=== PATIENT | male | born 1950 | race Caucasian/White ===

== ENCOUNTER 2020-07-12 12:18 | Inpatient (IN) | payer BC, MEDICARE ==
[2020-07-12] VITALS (14 sets, daily range): BP systolic 103–161; BP diastolic 54–117
[~2020-07-12] VITALS: Ht 190.5 cm; Wt 133.5 kg
[~2020-07-12 12:18] MED LIST: BENA20TA2 PO; CELE-193 PO; DILT180C90 PO; HYDR-4383 PO; HYDR12.5 PO; METO-384 PO; ROSU10TA2 PO; ZOLP10TA5 PO
[2020-07-12] MEDS ORDERED: fentaNYL/PF 50MCG/1 ML 2ML syringe IV ONE (12:30)
[2020-07-12] MEDS ORDERED: diltiazem 5mg/ml 5ml inj. IV ONE (12:30)
[2020-07-12] MEDS ORDERED: iohexol 350MG/ML 100ml bottle IV ONE (12:38)
[2020-07-12 12:50] LABS: BASOPHILS % (AUTO) 0.3 % (0-1); EOSINOPHILS % (AUTO) 0 % (0-6); HEMATOCRIT 38.4 % (42.0-52.0); HEMOGLOBIN 12.6 g/dl (14.0-17.9); LYMPHOCYTES # (AUTO) 0.4 X10'3 (1.1-4.8); LYMPHOCYTES % (AUTO) 4.4 % (21-51); MEAN CORPUSCULAR HEMOGLOBIN 31.3 PG (27.0-31.0); MEAN CORPUSCULAR HGB CONC 32.9 g/dL (33.0-36.5); MEAN CORPUSCULAR VOLUME 95.2 FL (78-98); MEAN PLATELET VOLUME 8.8 FL (7.4-10.4); MONOCYTES # (AUTO) 0.5 X10'3 (0-0.9); MONOCYTES % (AUTO) 6.1 % (2-12); NEUTROPHILS # (AUTO) 7.3 X10'3 (1.8-7.7); NEUTROPHILS % (AUTO) 89.2 % (42-75); PLATELET COUNT 249 X10'3 (140-440); RED BLOOD COUNT 4.03 X10'6 (4.70-6.10); RED CELL DISTRIBUTION WIDTH 15.6 % (11.5-14.5); WHITE BLOOD COUNT 8.1 X10'3 (4.5-11.0)
[2020-07-12 12:55] LABS: ABG BASE EXCESS -4.5 mmol/L (-2.0-2.0); ABG HCO3 20.5 mmol/L (22.0-26.0); ABG OXYGEN SATURATION 99.3 % (94-97); ABG PCO2 (T) 37.5 mmHg (35.0-48.0); ALLEN'S TEST POSITIVE; FCOHb 0.1 % (0.0-3.9); FLOW 15 L/min; FMetHb 0.2 % (0.0-1.5); TOTAL HEMOGLOBIN 12.5 G/dl (14.0-18.0)
[2020-07-12] MEDS ORDERED: morphine 10mg/ml inj. IV ONE (12:55)
--- NOTE | 2020-07-12 13:15 | NUR ---
DR GRAY INFORMED OF BLUE FEET BILARALLY, NO PD OR TB PULSES PALPATED. VERY COLD FEET TO ANKLE
[2020-07-12 13:17] LABS: PARTIAL THROMBOPLASTIN TIME 23 SECONDS (22-32)
[2020-07-12 13:18] LABS: ALANINE AMINOTRANSFERASE 34 U/L (12-78); ALBUMIN 3.3 G/DL (3.4-5.0); ALBUMIN/GLOBULIN RATIO 1.1 (1.1-1.5); ALKALINE PHOSPHATASE 115 IU/L (46-116); ANION GAP 6 (8-16); ASPARTATE AMINO TRANSFERASE 25 U/L (10-37); BILIRUBIN,TOTAL 0.8 MG/DL (0.1-1.0); BLOOD UREA NITROGEN 20 MG/DL (7-18); BUN/CREATININE RATIO 16.4 (5.4-32.0); CALCIUM 8.1 MG/DL (8.5-10.1); CHLORIDE 104 MMOL/L (99-107); CREATININE 1.22 MG/DL (0.60-1.10); GLUCOSE 133 MG/DL (70-104); POTASSIUM 3.4 MMOL/L (3.5-5.1); SODIUM 138 MMOL/L (135-145); TOTAL CARBON DIOXIDE 28.1 MMOL/L (24-32); TOTAL PROTEIN 6.3 G/DL (6.4-8.2); eGFR 59 ML/MIN
[2020-07-12 13:27] LABS: C-REACTIVE PROTEIN 0.47 MG/DL (0.0-0.5); LACTATE DEHYDROGENASE 164 U/L (85-227); LIPASE 266 U/L (73-393); MAGNESIUM 1.5 MG/DL (1.5-2.4)
[2020-07-12 13:29] LABS: FERRITIN 38 NG/ML (26-388)
[2020-07-12] MEDS ORDERED: HYDR12.55 PO (13:30)
[2020-07-12] MEDS ORDERED: METO-384 PO (13:30)
[2020-07-12] MEDS ORDERED: ROSU10TA28 PO (13:30)
[2020-07-12] MEDS ORDERED: BENA40TA72 PO (13:30)
[2020-07-12] MEDS ORDERED: CELE400C10 PO (13:30)
[2020-07-12] MEDS ORDERED: ZOLP10TA PO (13:30)
[2020-07-12] MEDS ORDERED: HYDR-3964 PO (13:30)
[2020-07-12] MEDS ORDERED: DILT180C49 PO (13:30)
[2020-07-12] MEDS ORDERED: ASPI-611 PO (13:32)
[2020-07-12] MEDS ORDERED: CHOL200012 PO (13:32)
[2020-07-12] MEDS ORDERED: MULT-1085 PO (13:32)
--- NOTE | 2020-07-12 13:32 | NUR ---
BACK FROM CT SCAN BP LEFT ARM DURING SCAN 95/73
--- NOTE | 2020-07-12 13:38 | NUR ---
DR GRAY WAS PRESENT IN CT SCAN DR GRAY AWARE OF CURRENT VITALS, VO FOR KEL
--- NOTE | 2020-07-12 13:42 | NUR ---
VERBAL ORDER FOR 2 LITERS SALINE ELEVATED LACTATE
[2020-07-12] MEDS ORDERED: normal saline 1000ml 1,000 ML IV ONE ×2 (13:45)
[2020-07-12 14:19] LABS: CLARITY,URINE CLEAR (Clear); COLOR,URINE YELLOW (Yellow); GLUCOSE, URINE NEGATIVE (Neg); KETONES,URINE NEGATIVE (Neg); LEUKOCYTE ESTERASE ,URINE NEGATIVE (Neg); NITRITES, URINE NEGATIVE (Neg); OCCULT BLOOD,URINE NEGATIVE (Neg); PH,URINE 6.5 (4.8-8.0); PROTEIN,URINE 30 mg/dl (Neg)
[2020-07-12 14:21] LABS: UA COLLECTION TYPE FOLEY CATH
[2020-07-12 14:25] LABS: RBC,URINE NONE SEEN /HPF (0-2)
[2020-07-12 14:26] LABS: BACTERIA,URINE NONE SEEN /HPF (Neg); SQUAMOUS EPITHELIAL CELL,UR FEW /LPF (FEW); WBC CLUMPS,URINE FEW /HPF (NEGATIVE)
[2020-07-12 14:28] LABS: CELLULAR CAST 0-4 /LPF (NEGATIVE); MUCUS STRANDS FEW /LPF (Neg)
[2020-07-12] MEDS ORDERED: metroNIDAZOLE-Flagyl 500mg/NS 100 ML IV STA (14:28)
[2020-07-12 14:29] LABS: HYALINE CASTS 0-3 /LPF (NEGATIVE)
[2020-07-12] MEDS ORDERED: CefTRIAXone 2gm/D5W 50ml BAG 50 ML IV ONE (14:30)
[2020-07-12] MEDS ORDERED: ringers solution, lacted 1,000 ML IV ONE (14:55)
[2020-07-12] MEDS ORDERED: MIDAZolam inj 50 MG in normal saline 50ml IV soln 40 ML IV SCH (15:05)
[2020-07-12] MEDS ORDERED: ondansetron/PF 4mg/2ml inj IV PRN ×2 (15:05→17:20)
[2020-07-12] MEDS ORDERED: ringers solution, lacted 1,000 ML IV SCH (15:05)
[2020-07-12] MEDS ORDERED: diltiazem-NS 100mg/100ml 125 ML IV SCH (15:05)
[2020-07-12] MEDS ORDERED: FENTANYL-0.9 % NACL/PF 100 ML IV PRN ×2 (15:05→17:20)
[2020-07-12] MEDS ORDERED: MIDAZolam 5mg/ml 2ml vial ONE (15:11)
[2020-07-12] MEDS ORDERED: fentaNYL /PF 50mcg/ml 5ml ampule ONE (15:12)
[2020-07-12] MEDS ORDERED: rocuronium 10mg/ml inj IV ONE ×2 (15:12→16:22)
[2020-07-12] MEDS ORDERED: propofol inj 20 ML IV ONE (15:12)
[2020-07-12] MEDS ORDERED: LIDOcaine 2% (20mg/ml) 5ml vial ONE (15:12)
[2020-07-12] MEDS ORDERED: midazolam 100mg in NS 100ml 100 ML IV PRN (15:20)
[2020-07-12] MEDS ORDERED: sevoflurane 250ml liquid IH ONE (15:40)
[2020-07-12] MEDS ORDERED: phenylephrine 10mg/ml inj. ONE (15:40)
[2020-07-12] MEDS ORDERED: NORepinephrine 8 MG in NS 250 ML BAG (32 mcg/ml) IV ONE (15:40)
[2020-07-12] MEDS ORDERED: metoprolol tartrate 1mg/ml inj IV ONE (16:50)
[2020-07-12] MEDS ORDERED: diltiazem-NS 100mg/100ml 100 ML IV SCH (17:14)
[2020-07-12] MEDS ORDERED: diltiazem-D5W 125mg/125ml 125 ML IV SCH (17:16)
[2020-07-12] MEDS ORDERED: pantoprazole 40 MG vial IV ONE ×3 (17:20→18:00)
[2020-07-12] MEDS ORDERED: ipratropium/albuterol 3ml nebule NEB PRN (17:20)
[2020-07-12] MEDS ORDERED: fentaNYL/PF 50MCG/1 ML 2ML syringe IV PRN (17:20)
[2020-07-12] MEDS ORDERED: potassium Cl 20 mEq SR tablet PO PRN ×2 (17:20)
[2020-07-12] MEDS ORDERED: amiodarone 150mg/dext, iso-os 100 ML IV ONE (17:20)
[2020-07-12] MEDS ORDERED: midazolam 2 mg/2 ml injection IV ONE (17:20)
[2020-07-12] MEDS ORDERED: acetaminophen 325mg tablet PO PRN ×2 (17:20)
[2020-07-12] MEDS ORDERED: LIDOcaine 2% 10ml TOPICAL JELLY (Urojet) TP ONE (17:20)
[2020-07-12] MEDS ORDERED: potassium CL 10mEq/100ml bag 100 ML IV PRN ×2 (17:20)
--- NOTE | 2020-07-12 17:26 | NUR ---
Received from OR via ICU bed to room 2010, accompanied by Anesthesiologist Silvia and report given by Anesthesiolgist. Pt placed on ventilator and monitor. Art line and CVP zeroed, MD relays art line positional. Cuff pressure also taken. VS stable. Vent settings to A/C VC and pt not responding to questions at this time, appears comfortable. Drips hooked up per MD orders please see eMAR. OG tube placed to section, mild drainage appeared in suction cannister. Island dressing to midline and MEIR to upper right quadrant serosang drainage. Thompson cath draining alfred urine. All lines labeled. Dr Tuttle at bedside who states not to hang cardizem as ordered but to order amiodarone instead. Will monitor closely.
[2020-07-12] MEDS: midazolam 100mg in NS 100ml 100 ML IV PRN (17:44)
[2020-07-12] MEDS: FENTANYL-0.9 % NACL/PF 100 ML IV PRN (17:45)
[2020-07-12] MEDS: amiodarone/D5 360MG/200ML BAG 200 ML IV SCH ×2 (18:03→23:34)
[2020-07-12] MEDS: NORepinephrine 8mg/ 250ml NS 250 ML IV PRN (18:05)
--- NOTE | 2020-07-12 18:36 | NUR ---
Report given to Leeanne Gaitan RN at bedside at room 2009. All VS stable, lines labeled, BLL locked, alarms audible, RT is at bedside attempting to draw ABG. Chest x-ray already taken. Second bag of amiodarone hanging. Relayed to RN all events during recovery, huang cath and MEIR emptied and recorded. All questions answered. Bedside RN taking over care of patient.
--- NOTE | 2020-07-12 18:40 | NUR ---
Patient in room CICU 2009. I have received report from AFSHAN OSW and had the opportunity to ask questions and assume patient care.
--- NOTE | 2020-07-12 19:02 | NUR ---
I have reviewed and agree with all medications administered and interventions performed by [facility] Student Aneta Calle.
[2020-07-12 19:05] LABS: ABG BASE EXCESS -2.6 mmol/L (-2.0-2.0); ABG HCO3 22.4 mmol/L (22.0-26.0); ABG OXYGEN SATURATION 98.4 % (94-97); ABG PCO2 (T) 40.2 mmHg (35.0-48.0); ABG PO2 (T) 135.2 mmHg (75.0-100.0); FCOHb 0.3 % (0.0-3.9); FMetHb 0.2 % (0.0-1.5); FO2Hb 97.9 % (94-97); PATIENT TEMPERATURE 37.3; PEEP 5 cm H2O; RESPIRATORY RATE 20 b/min; TIDAL VOLUME 450 mL; TOTAL HEMOGLOBIN 12.6 G/dl (14.0-18.0)
[2020-07-12] MEDS: ipratropium/albuterol 3ml nebule NEB SCH ×2 (19:37→23:04)
[2020-07-12] MEDS: pantoprazole 40MG/NS 100ML BAG 100 ML IV SCH (21:36)
[2020-07-12] MEDS: normal saline 1000ml 1,000 ML IV SCH (21:38)
[2020-07-12] MEDS: docusate sod 100mg capsule PO SCH (21:39)
[2020-07-13] VITALS (24 sets, daily range): BP systolic 91–126; BP diastolic 56–81
[2020-07-13] MEDS: NORepinephrine 8mg/ 250ml NS 250 ML IV PRN ×2 (00:30→12:02)
[2020-07-13] MEDS: metroNIDAZOLE-Flagyl 500mg/NS 100 ML IV SCH ×4 (00:33→23:55)
[2020-07-13] MEDS: pantoprazole 40MG/NS 100ML BAG 100 ML IV SCH ×5 (01:56→20:46)
[2020-07-13] MEDS: ipratropium/albuterol 3ml nebule NEB SCH ×6 (02:43→23:04)
[2020-07-13 03:17] LABS: BASOPHILS % (AUTO) 0 % (0-1); EOSINOPHILS % (AUTO) 0 % (0-6); HEMATOCRIT 33.4 % (42.0-52.0); HEMOGLOBIN 10.9 g/dl (14.0-17.9); LYMPHOCYTES # (AUTO) 0.4 X10'3 (1.1-4.8); MEAN CORPUSCULAR HEMOGLOBIN 31.5 PG (27.0-31.0); MEAN CORPUSCULAR HGB CONC 32.8 g/dL (33.0-36.5); MEAN CORPUSCULAR VOLUME 96.1 FL (78-98); MEAN PLATELET VOLUME 8.7 FL (7.4-10.4); MONOCYTES # (AUTO) 0.8 X10'3 (0-0.9); PLATELET COUNT 216 X10'3 (140-440); RED BLOOD COUNT 3.47 X10'6 (4.70-6.10); RED CELL DISTRIBUTION WIDTH 16.1 % (11.5-14.5); WHITE BLOOD COUNT 9.2 X10'3 (4.5-11.0)
[2020-07-13] MEDS: midazolam 100mg in NS 100ml 100 ML IV PRN ×2 (03:26→17:19)
[2020-07-13] MEDS: FENTANYL-0.9 % NACL/PF 100 ML IV PRN ×2 (03:27→15:51)
[2020-07-13 03:29] LABS: ALANINE AMINOTRANSFERASE 27 U/L (12-78); ALBUMIN 2.5 G/DL (3.4-5.0); ALBUMIN/GLOBULIN RATIO 0.9 (1.1-1.5); ALKALINE PHOSPHATASE 87 IU/L (46-116); ANION GAP 7 (8-16); ASPARTATE AMINO TRANSFERASE 17 U/L (10-37); BLOOD UREA NITROGEN 19 MG/DL (7-18); BUN/CREATININE RATIO 21.3 (5.4-32.0); CALCIUM 7.9 MG/DL (8.5-10.1); CHLORIDE 106 MMOL/L (99-107); CREATININE 0.89 MG/DL (0.60-1.10); GLUCOSE 139 MG/DL (70-104); PHOSPHORUS 3.7 MG/DL (2.3-4.5); POTASSIUM 4.1 MMOL/L (3.5-5.1); SODIUM 140 MMOL/L (135-145); TOTAL CARBON DIOXIDE 26.9 MMOL/L (24-32); TOTAL PROTEIN 5.4 G/DL (6.4-8.2); TROPONIN I < 0.04 NG/ML (0.0-0.05); eGFR 85 ML/MIN
[2020-07-13 03:45] LABS: ABG BASE EXCESS -1.2 mmol/L (-2.0-2.0); ABG OXYGEN SATURATION 97.4 % (94-97); ABG PCO2 (T) 41.7 mmHg (35.0-48.0); ABG PO2 (T) 106.6 mmHg (75.0-100.0); FCOHb 0.3 % (0.0-3.9); FMetHb 0.1 % (0.0-1.5); PATIENT TEMPERATURE 36.9; PEEP 5 cm H2O; RESPIRATORY RATE 20 b/min; TIDAL VOLUME 450 mL; TOTAL HEMOGLOBIN 11.8 G/dl (14.0-18.0)
[2020-07-13] MEDS: normal saline 1000ml 1,000 ML IV SCH ×4 (05:20→17:20)
[2020-07-13] MEDS: amiodarone/D5 360MG/200ML BAG 200 ML IV SCH ×4 (06:00→23:55)
--- NOTE | 2020-07-13 06:39 | NUR ---
Problems reprioritized. Patient report given, questions answered & plan of care reviewed with EFFIE SOW.
[2020-07-13] MEDS ORDERED: fluconazole-Diflucan 200mg/NS 100 ML IV SCH (08:00)
[2020-07-13] MEDS: docusate sod 100mg capsule PO SCH ×2 (08:00→20:00)
--- NOTE | 2020-07-13 08:51 | NUR ---
DR Marcum at bedside. Orders to try patient on SPONT and wean to extubate. Patient tolerated SPONT for only a few min before HR went up to 160. Patient placed back on a rate and MD and respiratory notified.
[2020-07-13] MEDS: levoFLOXACIN-Levaquin 750MG/D5 150 ML IV SCH (09:50)
[2020-07-13] MEDS ORDERED: midazolam 2 mg/2 ml injection IV PRN (12:35)
[2020-07-13] MEDS: dexmedetomidin/NS 400mcg/100ml 100 ML IV SCH ×3 (12:57→20:47)
--- NOTE | 2020-07-13 14:05 | NUR ---
Initial: Pt admit with perforated gastric ulcer. Pt remains intubated s/p repair of perforated gastric ulcer. TF recommendations below for if prolonged intubation and to receive nutrition support. Will continue to follow closely. Recommendations: 1) IF TF, continuous Vital High Protein with goal rate of 95 mL/hr to begin at 20 mL/hr and advance by 20 mL Q8H as tolerated to goal rate 2) IF TF, additional 65 mL water flush Q4H 3) IF TF, prealbumin q Thursday/, daily weights 4) Bowel care per rx Addendum: 07/13/20 at 1406 by Katie Ordoñez RD Amended: Links added.
--- NOTE | 2020-07-13 18:30 | NUR ---
I have reviewed and agree with all medications administered and interventions performed by [facility] Student Aneta Calle.
[2020-07-13] MEDS: mineral oil/petrolatum ophthal oint EACHEYE SCH (20:00)
[2020-07-14] VITALS (23 sets, daily range): BP systolic 88–131; BP diastolic 58–95
[2020-07-14] MEDS: mineral oil/petrolatum ophthal oint EACHEYE SCH ×4 (02:14→20:00)
[2020-07-14] MEDS: pantoprazole 40MG/NS 100ML BAG 100 ML IV SCH ×5 (02:14→19:41)
[2020-07-14] MEDS: ipratropium/albuterol 3ml nebule NEB SCH ×6 (02:41→22:58)
[2020-07-14 03:25] LABS: ABG BASE EXCESS -0.7 mmol/L (-2.0-2.0); ABG HCO3 24.5 mmol/L (22.0-26.0); ABG OXYGEN SATURATION 92.9 % (94-97); ABG PCO2 (T) 43.3 mmHg (35.0-48.0); ABG PO2 (T) 67.3 mmHg (75.0-100.0); FCOHb 0.3 % (0.0-3.9); FMetHb 0.1 % (0.0-1.5); FO2Hb 92.5 % (94-97); PATIENT TEMPERATURE 37.2; PEEP 5 cm H2O; RESPIRATORY RATE 20 b/min; TIDAL VOLUME 450 mL
[2020-07-14 03:31] LABS: BASOPHILS % (AUTO) 0.2 % (0-1); EOSINOPHILS % (AUTO) 0.3 % (0-6); HEMATOCRIT 29.8 % (42.0-52.0); HEMOGLOBIN 9.7 g/dl (14.0-17.9); LYMPHOCYTES # (AUTO) 0.5 X10'3 (1.1-4.8); LYMPHOCYTES % (AUTO) 7.5 % (21-51); MEAN CORPUSCULAR HEMOGLOBIN 31.8 PG (27.0-31.0); MEAN CORPUSCULAR HGB CONC 32.7 g/dL (33.0-36.5); MEAN CORPUSCULAR VOLUME 97.2 FL (78-98); MEAN PLATELET VOLUME 8.6 FL (7.4-10.4); MONOCYTES # (AUTO) 0.5 X10'3 (0-0.9); MONOCYTES % (AUTO) 6.8 % (2-12); NEUTROPHILS % (AUTO) 85.2 % (42-75); PLATELET COUNT 176 X10'3 (140-440); RED BLOOD COUNT 3.06 X10'6 (4.70-6.10); RED CELL DISTRIBUTION WIDTH 16.4 % (11.5-14.5); WHITE BLOOD COUNT 7.1 X10'3 (4.5-11.0)
[2020-07-14 03:43] LABS: ALANINE AMINOTRANSFERASE 24 U/L (12-78); ALBUMIN 2.1 G/DL (3.4-5.0); ALBUMIN/GLOBULIN RATIO 0.7 (1.1-1.5); ALKALINE PHOSPHATASE 83 IU/L (46-116); ANION GAP 4 (8-16); ASPARTATE AMINO TRANSFERASE 15 U/L (10-37); BILIRUBIN,TOTAL 0.8 MG/DL (0.1-1.0); BLOOD UREA NITROGEN 18 MG/DL (7-18); BUN/CREATININE RATIO 21.2 (5.4-32.0); CALCIUM 8.1 MG/DL (8.5-10.1); CHLORIDE 109 MMOL/L (99-107); CREATININE 0.85 MG/DL (0.60-1.10); GLUCOSE 119 MG/DL (70-104); MAGNESIUM 2.1 MG/DL (1.5-2.4); PHOSPHORUS 2.4 MG/DL (2.3-4.5); POTASSIUM 4.4 MMOL/L (3.5-5.1); SODIUM 141 MMOL/L (135-145); TOTAL CARBON DIOXIDE 27.8 MMOL/L (24-32); eGFR 89 ML/MIN
[2020-07-14] MEDS: dexmedetomidin/NS 400mcg/100ml 100 ML IV SCH ×3 (05:40→23:04)
[2020-07-14] MEDS: amiodarone/D5 360MG/200ML BAG 200 ML IV SCH ×2 (05:44→12:22)
[2020-07-14] MEDS: docusate sod 100mg capsule PO SCH (08:00)
[2020-07-14] MEDS: metroNIDAZOLE-Flagyl 500mg/NS 100 ML IV SCH ×2 (08:03→15:46)
[2020-07-14] MEDS: FENTANYL-0.9 % NACL/PF 100 ML IV PRN ×2 (08:57→23:02)
[2020-07-14] MEDS: normal saline 1000ml 1,000 ML IV SCH ×2 (09:16→15:44)
[2020-07-14] MEDS: levoFLOXACIN-Levaquin 750MG/D5 150 ML IV SCH (10:48)
--- NOTE | 2020-07-14 18:15 | NUR ---
Patient in room CICU 2009. I have received report and had the opportunity to ask questions and assume patient care.
--- NOTE | 2020-07-14 22:03 | NUR ---
Pt's phoned nurses station. Spouse updated.
[2020-07-15] VITALS (29 sets, daily range): BP systolic 91–147; BP diastolic 62–99
[2020-07-15] MEDS: metroNIDAZOLE-Flagyl 500mg/NS 100 ML IV SCH ×3 (00:23→15:22)
[2020-07-15] MEDS: amiodarone/D5 360MG/200ML BAG 200 ML IV SCH ×4 (00:23→12:04)
[2020-07-15] MEDS: pantoprazole 40MG/NS 100ML BAG 100 ML IV SCH ×6 (00:26→20:45)
[2020-07-15] MEDS: normal saline 1000ml 1,000 ML IV SCH ×2 (02:36→15:20)
[2020-07-15] MEDS: mineral oil/petrolatum ophthal oint EACHEYE SCH ×4 (02:44→20:00)
[2020-07-15] MEDS: ipratropium/albuterol 3ml nebule NEB SCH ×6 (02:59→23:06)
[2020-07-15 03:51] LABS: ABG BASE EXCESS -1.4 mmol/L (-2.0-2.0); ABG HCO3 23.1 mmol/L (22.0-26.0); ABG OXYGEN SATURATION 94.5 % (94-97); ABG PCO2 (T) 38.6 mmHg (35.0-48.0); ABG PO2 (T) 77.2 mmHg (75.0-100.0); FCOHb 0.3 % (0.0-3.9); FMetHb 0.3 % (0.0-1.5); FO2Hb 93.9 % (94-97); PATIENT TEMPERATURE 37.5; PEEP 5 cm H2O; TOTAL HEMOGLOBIN 10.2 G/dl (14.0-18.0)
[2020-07-15 03:57] LABS: BASOPHILS % (AUTO) 0.3 % (0-1); EOSINOPHILS % (AUTO) 0.4 % (0-6); HEMATOCRIT 27.8 % (42.0-52.0); HEMOGLOBIN 9.2 g/dl (14.0-17.9); LYMPHOCYTES # (AUTO) 0.4 X10'3 (1.1-4.8); MEAN CORPUSCULAR HEMOGLOBIN 31.7 PG (27.0-31.0); MEAN CORPUSCULAR HGB CONC 33.1 g/dL (33.0-36.5); MEAN CORPUSCULAR VOLUME 95.9 FL (78-98); MEAN PLATELET VOLUME 8.4 FL (7.4-10.4); MONOCYTES # (AUTO) 0.5 X10'3 (0-0.9); MONOCYTES % (AUTO) 6.6 % (2-12); NEUTROPHILS # (AUTO) 6.2 X10'3 (1.8-7.7); NEUTROPHILS % (AUTO) 86.7 % (42-75); PLATELET COUNT 169 X10'3 (140-440); RED CELL DISTRIBUTION WIDTH 16.1 % (11.5-14.5); WHITE BLOOD COUNT 7.2 X10'3 (4.5-11.0)
[2020-07-15 04:08] LABS: ALANINE AMINOTRANSFERASE 18 U/L (12-78); ALBUMIN 1.9 G/DL (3.4-5.0); ALBUMIN/GLOBULIN RATIO 0.6 (1.1-1.5); ALKALINE PHOSPHATASE 83 IU/L (46-116); ANION GAP 6 (8-16); ASPARTATE AMINO TRANSFERASE 11 U/L (10-37); BILIRUBIN,TOTAL 0.7 MG/DL (0.1-1.0); BLOOD UREA NITROGEN 18 MG/DL (7-18); CHLORIDE 109 MMOL/L (99-107); CREATININE 0.82 MG/DL (0.60-1.10); GLUCOSE 114 MG/DL (70-104); MAGNESIUM 1.9 MG/DL (1.5-2.4); PHOSPHORUS 2.7 MG/DL (2.3-4.5); POTASSIUM 4.2 MMOL/L (3.5-5.1); SODIUM 141 MMOL/L (135-145); TOTAL CARBON DIOXIDE 26.3 MMOL/L (24-32); TOTAL PROTEIN 4.9 G/DL (6.4-8.2); eGFR > 90 ML/MIN
--- NOTE | 2020-07-15 06:31 | NUR ---
Problems reprioritized. Patient report given, questions answered & plan of care reviewed.
[2020-07-15] MEDS: docusate sodium 100mg/10ml UD cup PO SCH ×2 (08:01→21:14)
[2020-07-15] MEDS: levoFLOXACIN-Levaquin 750MG/D5 150 ML IV SCH (09:00)
[2020-07-15] MEDS: FENTANYL-0.9 % NACL/PF 100 ML IV PRN ×2 (10:07→21:13)
--- NOTE | 2020-07-15 10:52 | NUR ---
TF Consult: TF to start at 10ml/hr today per surgeon. RD d/w surgeon regarding Vital AF instead of Jevity for EN and surgeon agreeable. Pt s/p perforated pyloric channel ulcer repair DX sepsis and peritonitis on admit. Will hold additional free water at this time until EN approved to advance per surgeon.Will monitor for EN tolerance and advancement as medically indicated. Recommendations: 1) Continuous TF at 10ml/hr per surgeon request using Vital High Protein. To provide 240ml volume, 240kcals, 202ml free water, and 21g protein. 2) IF TF to advance; recommend Vital High Protein with goal rate of 95 mL/hr and advance by 20 mL Q8H as tolerated to goal rate 3) Once TF advances, additional 100mL water flush Q4H 4) prealbumin q Thursday/, daily weights 5) Bowel care per rx Addendum: 07/15/20 at [address] Amended: Links added.
[2020-07-15] MEDS: dexmedetomidin/NS 400mcg/100ml 100 ML IV SCH ×2 (12:03→15:18)
--- NOTE | 2020-07-15 18:19 | NUR ---
Problems reprioritized. Patient report given, questions answered & plan of care reviewed with Parul.
--- NOTE | 2020-07-15 18:20 | NUR ---
Patient in room CICU 2009. I have received report from and had the opportunity to ask questions and assume patient care.
[2020-07-15] MEDS: lactobacillus rhamnosus 10,000 MMU CELLS/CAPSULE PO SCH (21:13)
[2020-07-16] VITALS (25 sets, daily range): BP systolic 108–217; BP diastolic 71–133
[2020-07-16] MEDS: metroNIDAZOLE-Flagyl 500mg/NS 100 ML IV SCH ×3 (00:28→15:27)
[2020-07-16] MEDS: normal saline 1000ml 1,000 ML IV SCH (00:43)
[2020-07-16] MEDS: pantoprazole 40MG/NS 100ML BAG 100 ML IV SCH ×3 (00:44→09:28)
[2020-07-16] MEDS: mineral oil/petrolatum ophthal oint EACHEYE SCH ×4 (01:49→20:58)
[2020-07-16] MEDS: ipratropium/albuterol 3ml nebule NEB SCH ×5 (02:50→20:04)
[2020-07-16 03:55] LABS: ABG HCO3 21.5 mmol/L (22.0-26.0); ABG OXYGEN SATURATION 93.2 % (94-97); ABG PCO2 (T) 36.4 mmHg (35.0-48.0); ABG PO2 (T) 67.7 mmHg (75.0-100.0); FCOHb 0.3 % (0.0-3.9); FMetHb 0.3 % (0.0-1.5); FO2Hb 92.6 % (94-97); PEEP 5 cm H2O; TOTAL HEMOGLOBIN 10.6 G/dl (14.0-18.0)
[2020-07-16 04:03] LABS: ALANINE AMINOTRANSFERASE 17 U/L (12-78); ALBUMIN 1.9 G/DL (3.4-5.0); ALBUMIN/GLOBULIN RATIO 0.6 (1.1-1.5); ALKALINE PHOSPHATASE 91 IU/L (46-116); ANION GAP 9 (8-16); ASPARTATE AMINO TRANSFERASE 14 U/L (10-37); BILIRUBIN,TOTAL 0.8 MG/DL (0.1-1.0); BLOOD UREA NITROGEN 16 MG/DL (7-18); BUN/CREATININE RATIO 24.2 (5.4-32.0); CALCIUM 7.9 MG/DL (8.5-10.1); CHLORIDE 111 MMOL/L (99-107); CREATININE 0.66 MG/DL (0.60-1.10); GLUCOSE 105 MG/DL (70-104); MAGNESIUM 1.8 MG/DL (1.5-2.4); POTASSIUM 3.7 MMOL/L (3.5-5.1); SODIUM 146 MMOL/L (135-145); TOTAL CARBON DIOXIDE 26.2 MMOL/L (24-32); TOTAL PROTEIN 4.9 G/DL (6.4-8.2); eGFR > 90 ML/MIN
[2020-07-16 04:18] LABS: BASOPHILS % (AUTO) 0.7 % (0-1); EOSINOPHILS # (AUTO) 0.2 X10'3 (0-0.9); EOSINOPHILS % (AUTO) 2.6 % (0-6); HEMATOCRIT 28.5 % (42.0-52.0); HEMOGLOBIN 9.3 g/dl (14.0-17.9); LYMPHOCYTES # (AUTO) 0.5 X10'3 (1.1-4.8); LYMPHOCYTES % (AUTO) 7.8 % (21-51); MEAN CORPUSCULAR HEMOGLOBIN 31.3 PG (27.0-31.0); MEAN CORPUSCULAR HGB CONC 32.6 g/dL (33.0-36.5); MEAN CORPUSCULAR VOLUME 96.2 FL (78-98); MEAN PLATELET VOLUME 8.8 FL (7.4-10.4); MONOCYTES # (AUTO) 0.6 X10'3 (0-0.9); MONOCYTES % (AUTO) 9.9 % (2-12); NEUTROPHILS # (AUTO) 4.7 X10'3 (1.8-7.7); PLATELET COUNT 184 X10'3 (140-440); RED BLOOD COUNT 2.96 X10'6 (4.70-6.10); RED CELL DISTRIBUTION WIDTH 16.5 % (11.5-14.5); WHITE BLOOD COUNT 5.9 X10'3 (4.5-11.0)
[2020-07-16] MEDS: dexmedetomidin/NS 400mcg/100ml 100 ML IV SCH ×3 (05:16→22:43)
--- NOTE | 2020-07-16 06:35 | NUR ---
Problems reprioritized. Patient report given, questions answered & plan of care reviewed .
[2020-07-16] MEDS: levoFLOXACIN-Levaquin 750MG/D5 150 ML IV SCH (07:08)
[2020-07-16] MEDS: lactobacillus rhamnosus 10,000 MMU CELLS/CAPSULE PO SCH (07:08)
[2020-07-16] MEDS: docusate sodium 100mg/10ml UD cup PO SCH (07:08)
[2020-07-16] MEDS: amiodarone/D5 360MG/200ML BAG 200 ML IV SCH ×3 (08:36→22:44)
[2020-07-16] MEDS ORDERED: furosemide 40mg/4ml inj IV ONE (09:55)
[2020-07-16] MEDS ORDERED: acetaminophen 325mg/10.15ml oral unit dose solution NG PRN ×2 (11:48)
[2020-07-16] MEDS ORDERED: POTASSIUM BICARB 20meq eff tab 20 MEQ TABLET.EFF NG PRN ×2 (11:49→11:50)
[2020-07-16] MEDS: morphine 2 MG/ML inj. syringe IV PRN (18:59)
[2020-07-16] MEDS ORDERED: labetalol 20mg/4ml (5mg/ml) syringe IV ONE (19:55)
[2020-07-16] MEDS: docusate sodium 100mg/10ml UD cup NG SCH (20:58)
[2020-07-16] MEDS: lactobacillus rhamnosus 10,000 MMU CELLS/CAPSULE NG SCH (20:58)
[2020-07-16] MEDS: pantoprazole 40 MG vial IV SCH (20:58)
[2020-07-16] MEDS: diltiazem 30mg tablet OGT SCH (22:05)
[2020-07-17] VITALS (24 sets, daily range): BP systolic 126–164; BP diastolic 88–111
[2020-07-17] MEDS: metroNIDAZOLE-Flagyl 500mg/NS 100 ML IV SCH ×3 (00:31→15:45)
[2020-07-17] MEDS: mineral oil/petrolatum ophthal oint EACHEYE SCH ×4 (02:00→19:14)
[2020-07-17] MEDS: diltiazem 30mg tablet OGT SCH ×3 (02:37→13:13)
[2020-07-17] MEDS: ipratropium/albuterol 3ml nebule NEB SCH ×6 (03:17→22:53)
[2020-07-17 03:52] LABS: BASOPHILS # (AUTO) 0.1 X10'3 (0-0.2); BASOPHILS % (AUTO) 0.8 % (0-1); EOSINOPHILS # (AUTO) 0.1 X10'3 (0-0.9); EOSINOPHILS % (AUTO) 1.3 % (0-6); HEMATOCRIT 29.1 % (42.0-52.0); HEMOGLOBIN 9.8 g/dl (14.0-17.9); LYMPHOCYTES # (AUTO) 0.6 X10'3 (1.1-4.8); LYMPHOCYTES % (AUTO) 9.5 % (21-51); MEAN CORPUSCULAR HEMOGLOBIN 32.2 PG (27.0-31.0); MEAN CORPUSCULAR HGB CONC 33.8 g/dL (33.0-36.5); MEAN CORPUSCULAR VOLUME 95.4 FL (78-98); MEAN PLATELET VOLUME 8.2 FL (7.4-10.4); MONOCYTES # (AUTO) 0.7 X10'3 (0-0.9); MONOCYTES % (AUTO) 10.2 % (2-12); NEUTROPHILS # (AUTO) 5.1 X10'3 (1.8-7.7); NEUTROPHILS % (AUTO) 78.2 % (42-75); PLATELET COUNT 211 X10'3 (140-440); RED BLOOD COUNT 3.05 X10'6 (4.70-6.10); RED CELL DISTRIBUTION WIDTH 16.4 % (11.5-14.5); WHITE BLOOD COUNT 6.5 X10'3 (4.5-11.0)
[2020-07-17] MEDS: dexmedetomidin/NS 400mcg/100ml 100 ML IV SCH ×4 (03:57→13:23)
[2020-07-17 04:06] LABS: ALANINE AMINOTRANSFERASE 18 U/L (12-78); ALBUMIN/GLOBULIN RATIO 0.6 (1.1-1.5); ALKALINE PHOSPHATASE 178 IU/L (46-116); ANION GAP 8 (8-16); ASPARTATE AMINO TRANSFERASE 25 U/L (10-37); BILIRUBIN,TOTAL 0.9 MG/DL (0.1-1.0); BLOOD UREA NITROGEN 17 MG/DL (7-18); BUN/CREATININE RATIO 22.1 (5.4-32.0); CALCIUM 8.3 MG/DL (8.5-10.1); CHLORIDE 113 MMOL/L (99-107); CREATININE 0.77 MG/DL (0.60-1.10); GLUCOSE 120 MG/DL (70-104); MAGNESIUM 1.8 MG/DL (1.5-2.4); PHOSPHORUS 3.6 MG/DL (2.3-4.5); POTASSIUM 3.4 MMOL/L (3.5-5.1); SODIUM 148 MMOL/L (135-145); TOTAL CARBON DIOXIDE 27.4 MMOL/L (24-32); TOTAL PROTEIN 5.4 G/DL (6.4-8.2); eGFR > 90 ML/MIN
[2020-07-17] MEDS: potassium Cl 20mEq/100mL bag 100 ML IV PRN ×3 (05:59→23:09)
[2020-07-17] MEDS: amiodarone/D5 360MG/200ML BAG 200 ML IV SCH ×4 (06:32→19:15)
[2020-07-17] MEDS ORDERED: furosemide 40mg/4ml inj IV ONE ×2 (08:30→16:00)
[2020-07-17] MEDS: pantoprazole 40 MG vial IV SCH ×2 (08:33→19:16)
[2020-07-17] MEDS: levoFLOXACIN-Levaquin 750MG/D5 150 ML IV SCH (08:33)
[2020-07-17] MEDS: lactobacillus rhamnosus 10,000 MMU CELLS/CAPSULE NG SCH ×2 (08:33→19:15)
[2020-07-17] MEDS: docusate sodium 100mg/10ml UD cup NG SCH ×2 (08:34→19:15)
--- NOTE | 2020-07-17 18:16 | NUR ---
Patient in room CICU 2009. I have received report and had the opportunity to ask questions and assume patient care.
[2020-07-17] MEDS: diltiazem 30mg tablet NG SCH (19:15)
[2020-07-17] MEDS: apixaban 5mg tablet NG SCH (19:16)
--- NOTE | 2020-07-17 21:28 | NUR ---
PT REQUESTED A FAN. FAN PROVIDED FOR PT
[2020-07-17] MEDS: morphine 2 MG/ML inj. syringe IV PRN (21:54)
[2020-07-17] MEDS: labetalol 20mg/4ml (5mg/ml) syringe IV PRN (22:08)
[2020-07-18] VITALS (21 sets, daily range): BP systolic 92–171; BP diastolic 66–115
[2020-07-18] MEDS ORDERED: furosemide 40mg/4ml inj IV ONE
[2020-07-18] MEDS: metroNIDAZOLE-Flagyl 500mg/NS 100 ML IV SCH ×2 (00:05→07:09)
[2020-07-18] MEDS: amiodarone/D5 360MG/200ML BAG 200 ML IV SCH ×4 (00:44→19:54)
[2020-07-18] MEDS: dexmedetomidin/NS 400mcg/100ml 100 ML IV SCH ×2 (01:10→08:24)
[2020-07-18] MEDS: mineral oil/petrolatum ophthal oint EACHEYE SCH ×4 (01:39→20:00)
[2020-07-18] MEDS: diltiazem 30mg tablet NG SCH ×3 (01:56→13:08)
[2020-07-18] MEDS: LORazepam 0.5 MG tablet PO PRN ×2 (01:56→07:26)
[2020-07-18] MEDS: labetalol 20mg/4ml (5mg/ml) syringe IV PRN ×3 (02:17→17:25)
[2020-07-18] MEDS: ipratropium/albuterol 3ml nebule NEB SCH ×5 (03:03→20:34)
[2020-07-18 03:18] LABS: BASOPHILS % (AUTO) 0.3 % (0-1); EOSINOPHILS % (AUTO) 0.1 % (0-6); HEMATOCRIT 33.3 % (42.0-52.0); HEMOGLOBIN 11.2 g/dl (14.0-17.9); LYMPHOCYTES # (AUTO) 0.7 X10'3 (1.1-4.8); LYMPHOCYTES % (AUTO) 6.6 % (21-51); MEAN CORPUSCULAR HEMOGLOBIN 32.2 PG (27.0-31.0); MEAN CORPUSCULAR HGB CONC 33.7 g/dL (33.0-36.5); MEAN CORPUSCULAR VOLUME 95.3 FL (78-98); MEAN PLATELET VOLUME 8.6 FL (7.4-10.4); MONOCYTES % (AUTO) 9.8 % (2-12); NEUTROPHILS # (AUTO) 8.5 X10'3 (1.8-7.7); NEUTROPHILS % (AUTO) 83.2 % (42-75); PLATELET COUNT 271 X10'3 (140-440); RED CELL DISTRIBUTION WIDTH 16.7 % (11.5-14.5); WHITE BLOOD COUNT 10.2 X10'3 (4.5-11.0)
[2020-07-18 03:39] LABS: ALANINE AMINOTRANSFERASE 20 U/L (12-78); ALBUMIN 2.4 G/DL (3.4-5.0); ALBUMIN/GLOBULIN RATIO 0.6 (1.1-1.5); ALKALINE PHOSPHATASE 232 IU/L (46-116); ANION GAP 9 (8-16); ASPARTATE AMINO TRANSFERASE 27 U/L (10-37); BLOOD UREA NITROGEN 21 MG/DL (7-18); CALCIUM 8.8 MG/DL (8.5-10.1); CHLORIDE 109 MMOL/L (99-107); CREATININE 0.84 MG/DL (0.60-1.10); GLUCOSE 122 MG/DL (70-104); MAGNESIUM 1.6 MG/DL (1.5-2.4); PHOSPHORUS 3.8 MG/DL (2.3-4.5); SODIUM 147 MMOL/L (135-145); TOTAL CARBON DIOXIDE 29.5 MMOL/L (24-32); TOTAL PROTEIN 6.3 G/DL (6.4-8.2); eGFR 90 ML/MIN
[2020-07-18] MEDS: potassium Cl 20mEq/100mL bag 100 ML IV PRN ×4 (03:49→08:34)
--- NOTE | 2020-07-18 04:51 | NUR ---
PT HR MAINTAINS 120-130 AIDS SOCIAL WORKER NOTIFIED. DIASTOLIC BP REMAINS HIGH 90s TO 100s. AIDS SOCIAL WORKER RESTARTED HOME BP MEDICATIONS WITH ONE DOSE GIVE NOW.
[2020-07-18] MEDS ORDERED: metoprolol succinate 25mg (24-HOUR) SR. Tablet PO ONE (05:05)
[2020-07-18] MEDS ORDERED: metoprolol tartrate 50mg tablet PO ONE (05:05)
[2020-07-18] MEDS: furosemide 40mg/4ml inj IV SCH (07:07)
[2020-07-18] MEDS: lactobacillus rhamnosus 10,000 MMU CELLS/CAPSULE NG SCH (07:08)
[2020-07-18] MEDS: pantoprazole 40 MG vial IV SCH (07:08)
[2020-07-18] MEDS: docusate sodium 100mg/10ml UD cup NG SCH (07:08)
[2020-07-18] MEDS: metoprolol succinate 25mg (24-HOUR) SR. Tablet PO SCH ×2 (07:08→20:59)
[2020-07-18] MEDS: apixaban 5mg tablet NG SCH (07:08)
[2020-07-18] MEDS: levoFLOXACIN-Levaquin 750MG/D5 150 ML IV SCH (07:09)
[2020-07-18] MEDS: morphine 2 MG/ML inj. syringe IV PRN ×2 (09:40→21:02)
[2020-07-18] MEDS: cloNIDine 0.1 mg tablet PO SCH ×3 (09:40→20:59)
--- NOTE | 2020-07-18 10:00 | NUR ---
Patient in room CICU 2009. I have received report from Alina SOW in ICU, awaiting arrival of patient.
[2020-07-18] MEDS: vancomycin/NS 1 GM ADD-VANTAGE 250 ML IV SCH (12:25)
--- NOTE | 2020-07-18 14:12 | NUR ---
Reassessment: Pt documented as A/O x 2 and confused. Pt previously tolerating trickle TF per MD at goal rate. Pt s/p BSS with ST recs minced moist diet with thin liquids. Pt initially with 0-25% PO intake first two meals however up to 50-75% PO intake of meal with 100% PO intake of milk at breakfast this morning. TF discontinued today per RN at critical care rounds. Pt has passed gas and has some evidence of bowel function per MD note. No documented LBM though receiving routine bowel care. Will continue to follow closely and monitor need for nutrition intervention pending further trends in PO intake. Recommendations: 1) Continue mechanical soft grind all diet with thin liquids per ST recs 2) Monitor need for ONS 3) Routine bowel care 4) Scaled weights per rx Addendum: 07/18/20 at 1413 by Katie Ordoñez RD Amended: Links added.
--- NOTE | 2020-07-18 15:01 | NUR ---
Received patient from ICU nurse Alina. Vital signs obtained, 2 RN skin check completed and placed on tele. HR is 120's. Pt. is A/O X3. Pt. is watching t.v. and offers no complaints at this time. Call light in reach. Amiodarone gtt is running per MD order.
[2020-07-18] MEDS ORDERED: acetaminophen 325mg/10.15ml oral unit dose solution PO PRN ×2 (15:34)
[2020-07-18] MEDS ORDERED: POTASSIUM BICARB 20meq eff tab 20 MEQ TABLET.EFF PO PRN (15:35)
[2020-07-18] MEDS ORDERED: ondansetron 4mg rapidly disintigrating tab PO PRN (16:45)
--- NOTE | 2020-07-18 18:42 | NUR ---
Problems reprioritized. Patient report given, questions answered & plan of care reviewed with Renee SOW.
--- NOTE | 2020-07-18 18:51 | NUR ---
Patient in room PCU 3023. I have received report from Tamanna SOW and had the opportunity to ask questions and assume patient care.
[2020-07-18] MEDS: docusate sodium 100mg/10ml UD cup PO SCH (20:58)
[2020-07-18] MEDS: lactobacillus rhamnosus 10,000 MMU CELLS/CAPSULE PO SCH (20:59)
[2020-07-18] MEDS: pantoprazole 40mg Tablet.DR PO SCH (20:59)
[2020-07-18] MEDS: diltiazem 30mg tablet PO SCH (21:00)
[2020-07-18] MEDS: apixaban 5mg tablet PO SCH (21:00)
[2020-07-19] VITALS (9 sets, daily range): BP systolic 96–186; BP diastolic 67–130
[2020-07-19] MEDS: vancomycin/NS 1 GM ADD-VANTAGE 250 ML IV SCH ×3 (00:14→23:19)
[2020-07-19] MEDS: amiodarone/D5 360MG/200ML BAG 200 ML IV SCH ×4 (00:14→20:32)
[2020-07-19] MEDS: ipratropium/albuterol 3ml nebule NEB SCH ×7 (00:18→23:32)
[2020-07-19] MEDS: mineral oil/petrolatum ophthal oint EACHEYE SCH ×4 (00:32→20:00)
[2020-07-19] MEDS: diltiazem 30mg tablet PO SCH ×4 (01:27→20:33)
[2020-07-19] MEDS ORDERED: diltiazem 30mg tablet PO ONE (03:30)
[2020-07-19 05:30] LABS: BASOPHILS % (AUTO) 0.2 % (0-1); EOSINOPHILS % (AUTO) 0.3 % (0-6); HEMATOCRIT 34.7 % (42.0-52.0); HEMOGLOBIN 11.5 g/dl (14.0-17.9); LYMPHOCYTES # (AUTO) 0.8 X10'3 (1.1-4.8); MEAN CORPUSCULAR HEMOGLOBIN 31.2 PG (27.0-31.0); MEAN CORPUSCULAR VOLUME 94.3 FL (78-98); MEAN PLATELET VOLUME 8.2 FL (7.4-10.4); MONOCYTES # (AUTO) 1.3 X10'3 (0-0.9); MONOCYTES % (AUTO) 11.1 % (2-12); NEUTROPHILS # (AUTO) 9.7 X10'3 (1.8-7.7); NEUTROPHILS % (AUTO) 81.4 % (42-75); PLATELET COUNT 300 X10'3 (140-440); RED BLOOD COUNT 3.68 X10'6 (4.70-6.10); RED CELL DISTRIBUTION WIDTH 16.4 % (11.5-14.5); WHITE BLOOD COUNT 11.9 X10'3 (4.5-11.0)
[2020-07-19 05:34] LABS: ALANINE AMINOTRANSFERASE 22 U/L (12-78); ALBUMIN 2.2 G/DL (3.4-5.0); ALBUMIN/GLOBULIN RATIO 0.6 (1.1-1.5); ALKALINE PHOSPHATASE 200 IU/L (46-116); ANION GAP 7 (8-16); ASPARTATE AMINO TRANSFERASE 22 U/L (10-37); BILIRUBIN,TOTAL 0.9 MG/DL (0.1-1.0); BLOOD UREA NITROGEN 25 MG/DL (7-18); BUN/CREATININE RATIO 28.4 (5.4-32.0); CALCIUM 8.3 MG/DL (8.5-10.1); CHLORIDE 109 MMOL/L (99-107); CREATININE 0.88 MG/DL (0.60-1.10); GLUCOSE 112 MG/DL (70-104); MAGNESIUM 1.8 MG/DL (1.5-2.4); PHOSPHORUS 3.6 MG/DL (2.3-4.5); POTASSIUM 3.1 MMOL/L (3.5-5.1); SODIUM 145 MMOL/L (135-145); TOTAL CARBON DIOXIDE 28.8 MMOL/L (24-32); TOTAL PROTEIN 5.9 G/DL (6.4-8.2); eGFR 86 ML/MIN
--- NOTE | 2020-07-19 06:51 | NUR ---
Problems reprioritized. Patient report given, questions answered & plan of care reviewed with Graciela SOW.
--- NOTE | 2020-07-19 07:34 | NUR ---
Patient in room PCU 3023. I have received report from MAGI Moya and had the opportunity to ask questions and assume patient care. Patient awake in bed and in no acute distress.
[2020-07-19] MEDS: apixaban 5mg tablet PO SCH ×2 (07:51→20:33)
[2020-07-19] MEDS: cloNIDine 0.1 mg tablet PO SCH ×3 (07:53→20:33)
[2020-07-19] MEDS: lactobacillus rhamnosus 10,000 MMU CELLS/CAPSULE PO SCH ×2 (07:54→20:33)
[2020-07-19] MEDS: metoprolol succinate 25mg (24-HOUR) SR. Tablet PO SCH ×2 (07:54→20:32)
[2020-07-19] MEDS: pantoprazole 40mg Tablet.DR PO SCH ×2 (07:54→20:32)
[2020-07-19] MEDS: docusate sodium 100mg/10ml UD cup PO SCH ×2 (07:55→20:32)
[2020-07-19] MEDS: furosemide 40mg/4ml inj IV SCH (07:55)
[2020-07-19] MEDS: labetalol 20mg/4ml (5mg/ml) syringe IV PRN (08:29)
[2020-07-19] MEDS ORDERED: POTASSIUM BICARBONATE/CIT AC 10 MEQ TABLET.EFF PO PRN (11:08)
[2020-07-19] MEDS: POTASSIUM BICARB 20meq eff tab 20 MEQ TABLET.EFF PO PRN ×3 (11:55→20:32)
--- NOTE | 2020-07-19 17:38 | NUR ---
Orientee documentation: I have reviewed and agree with all interventions, assessments performed and documented by MAGI Santamaria. [place]ee Medication Administration: For this medication-pass time frame, all medication were reviewed, dispensed, administered and documented per hospital policy by MAGI Santamaria.
--- NOTE | 2020-07-19 18:07 | NUR ---
Problems reprioritized. Patient report given, questions answered & plan of care reviewed with MAGI Moya. Patient stable at transfer of care.
--- NOTE | 2020-07-19 18:33 | NUR ---
Patient in room PCU 3023. I have received report from Graciela SOW and had the opportunity to ask questions and assume patient care.
[2020-07-19] MEDS ORDERED: VANCOMYCIN LEVEL IV ONE (23:30)
[2020-07-20] VITALS (9 sets, daily range): BP systolic 88–153; BP diastolic 59–110
[2020-07-20] MEDS: amiodarone/D5 360MG/200ML BAG 200 ML IV SCH ×3 (01:16→12:41)
[2020-07-20] MEDS: mineral oil/petrolatum ophthal oint EACHEYE SCH ×4 (02:00→19:59)
[2020-07-20] MEDS: diltiazem 30mg tablet PO SCH ×2 (02:40→07:24)
[2020-07-20] MEDS: ipratropium/albuterol 3ml nebule NEB SCH ×6 (03:15→22:33)
[2020-07-20 06:03] LABS: BASOPHILS % (AUTO) 0.3 % (0-1); EOSINOPHILS # (AUTO) 0.1 X10'3 (0-0.9); EOSINOPHILS % (AUTO) 0.6 % (0-6); HEMATOCRIT 33.7 % (42.0-52.0); HEMOGLOBIN 11.2 g/dl (14.0-17.9); LYMPHOCYTES % (AUTO) 8.1 % (21-51); MEAN CORPUSCULAR HEMOGLOBIN 31.6 PG (27.0-31.0); MEAN CORPUSCULAR HGB CONC 33.1 g/dL (33.0-36.5); MEAN CORPUSCULAR VOLUME 95.4 FL (78-98); MEAN PLATELET VOLUME 8.3 FL (7.4-10.4); MONOCYTES # (AUTO) 1.2 X10'3 (0-0.9); MONOCYTES % (AUTO) 9.8 % (2-12); NEUTROPHILS # (AUTO) 9.8 X10'3 (1.8-7.7); NEUTROPHILS % (AUTO) 81.2 % (42-75); PLATELET COUNT 292 X10'3 (140-440); RED BLOOD COUNT 3.53 X10'6 (4.70-6.10); RED CELL DISTRIBUTION WIDTH 16.4 % (11.5-14.5); WHITE BLOOD COUNT 12.1 X10'3 (4.5-11.0)
--- NOTE | 2020-07-20 06:08 | NUR ---
Problems reprioritized. Patient report given, questions answered & plan of care reviewed with Graciela SOW.
[2020-07-20 06:20] LABS: ALANINE AMINOTRANSFERASE 20 U/L (12-78); ALBUMIN 2.2 G/DL (3.4-5.0); ALBUMIN/GLOBULIN RATIO 0.6 (1.1-1.5); ALKALINE PHOSPHATASE 198 IU/L (46-116); ANION GAP 8 (8-16); ASPARTATE AMINO TRANSFERASE 24 U/L (10-37); BLOOD UREA NITROGEN 27 MG/DL (7-18); BUN/CREATININE RATIO 27.6 (5.4-32.0); CALCIUM 8.5 MG/DL (8.5-10.1); CHLORIDE 107 MMOL/L (99-107); CREATININE 0.98 MG/DL (0.60-1.10); GLUCOSE 93 MG/DL (70-104); MAGNESIUM 2.1 MG/DL (1.5-2.4); PHOSPHORUS 3.8 MG/DL (2.3-4.5); POTASSIUM 3.3 MMOL/L (3.5-5.1); SODIUM 146 MMOL/L (135-145); TOTAL CARBON DIOXIDE 30.6 MMOL/L (24-32); TOTAL PROTEIN 5.6 G/DL (6.4-8.2); eGFR 76 ML/MIN
[2020-07-20] MEDS: POTASSIUM BICARB 20meq eff tab 20 MEQ TABLET.EFF PO PRN ×3 (07:23→20:29)
[2020-07-20] MEDS: pantoprazole 40mg Tablet.DR PO SCH ×2 (07:25→20:00)
[2020-07-20] MEDS: apixaban 5mg tablet PO SCH ×2 (07:25→20:02)
[2020-07-20] MEDS: cloNIDine 0.1 mg tablet PO SCH ×2 (07:26→13:00)
[2020-07-20] MEDS: metoprolol succinate 25mg (24-HOUR) SR. Tablet PO SCH ×2 (07:26→20:01)
[2020-07-20] MEDS: docusate sodium 100mg/10ml UD cup PO SCH ×2 (07:27→20:00)
[2020-07-20] MEDS: furosemide 40mg/4ml inj IV SCH (07:28)
[2020-07-20] MEDS: lactobacillus rhamnosus 10,000 MMU CELLS/CAPSULE PO SCH ×2 (07:45→20:00)
--- NOTE | 2020-07-20 07:46 | NUR ---
Mehdi administered, forgot to scan barcode.
--- NOTE | 2020-07-20 15:50 | NUR ---
Reassessment: Patient continues with intermittent confusion, likely associated with his fluctuating PO Intake, on average eating 50% of meals, with minced moist diet per ST recs. Pending discharge to [facility] early next week. Recommend adding ONS to help meet nutrition needs. Recommendations: 1) Continue mechanical soft grind all diet with thin liquids per ST recs 2) Ensure Enlive with meals 3) Routine bowel care 4) Scaled weights per rx Addendum: 07/20/20 at [address] Amended: Links added.
[2020-07-20] MEDS: furosemide 40mg tablet PO SCH (16:23)
--- NOTE | 2020-07-20 18:08 | NUR ---
Problems reprioritized. Patient report given, questions answered & plan of care reviewed with MAGI Moya. Patient stable at transfer of care.
--- NOTE | 2020-07-20 18:33 | NUR ---
Patient in room PCU 3023. I have received report from Graciela SOW and had the opportunity to ask questions and assume patient care.
[2020-07-20] MEDS: amiodarone 200mg tablet PO SCH (20:02)
[2020-07-20] MEDS: zolpidem 5mg tablet PO SCH (20:47)
[2020-07-21] VITALS (16 sets, daily range): BP systolic 109–197; BP diastolic 70–120
[2020-07-21] MEDS: furosemide 40mg tablet PO SCH ×4 (00:15→23:46)
[2020-07-21] MEDS: mineral oil/petrolatum ophthal oint EACHEYE SCH ×4 (00:16→20:00)
[2020-07-21] MEDS: ipratropium/albuterol 3ml nebule NEB SCH ×6 (02:54→23:04)
[2020-07-21 06:06] LABS: BASOPHILS % (AUTO) 0.4 % (0-1); EOSINOPHILS # (AUTO) 0.1 X10'3 (0-0.9); EOSINOPHILS % (AUTO) 0.9 % (0-6); HEMATOCRIT 33.5 % (42.0-52.0); HEMOGLOBIN 11.4 g/dl (14.0-17.9); LYMPHOCYTES # (AUTO) 0.8 X10'3 (1.1-4.8); LYMPHOCYTES % (AUTO) 8.1 % (21-51); MEAN CORPUSCULAR HEMOGLOBIN 32.2 PG (27.0-31.0); MEAN CORPUSCULAR HGB CONC 33.9 g/dL (33.0-36.5); MEAN CORPUSCULAR VOLUME 94.9 FL (78-98); MEAN PLATELET VOLUME 8.3 FL (7.4-10.4); MONOCYTES % (AUTO) 9.6 % (2-12); NEUTROPHILS # (AUTO) 8.2 X10'3 (1.8-7.7); PLATELET COUNT 245 X10'3 (140-440); RED BLOOD COUNT 3.53 X10'6 (4.70-6.10); RED CELL DISTRIBUTION WIDTH 16.3 % (11.5-14.5); WHITE BLOOD COUNT 10.2 X10'3 (4.5-11.0)
[2020-07-21 06:27] LABS: ALANINE AMINOTRANSFERASE 23 U/L (12-78); ALBUMIN 2.3 G/DL (3.4-5.0); ALBUMIN/GLOBULIN RATIO 0.7 (1.1-1.5); ALKALINE PHOSPHATASE 193 IU/L (46-116); ANION GAP 9 (8-16); ASPARTATE AMINO TRANSFERASE 29 U/L (10-37); BILIRUBIN,TOTAL 1.2 MG/DL (0.1-1.0); BLOOD UREA NITROGEN 21 MG/DL (7-18); BUN/CREATININE RATIO 21.4 (5.4-32.0); CHLORIDE 103 MMOL/L (99-107); CREATININE 0.98 MG/DL (0.60-1.10); GLUCOSE 95 MG/DL (70-104); MAGNESIUM 1.7 MG/DL (1.5-2.4); PHOSPHORUS 3.5 MG/DL (2.3-4.5); SODIUM 142 MMOL/L (135-145); TOTAL PROTEIN 5.8 G/DL (6.4-8.2); eGFR 76 ML/MIN
--- NOTE | 2020-07-21 06:37 | NUR ---
Problems reprioritized. Patient report given, questions answered & plan of care reviewed with Nataly SOW.
--- NOTE | 2020-07-21 06:38 | NUR ---
Student documentation: I have reviewed and agree with all interventions, assessments performed and documented by Magalis.
--- NOTE | 2020-07-21 06:52 | NUR ---
Patient in room PCU 3023A. I have received report from Nita SOW and had the opportunity to ask questions and assume patient care.
--- NOTE | 2020-07-21 07:10 | NUR ---
PAGER ID: [phone] MESSAGE: [id number] Clifton ALMAGUER: ARON.. critical K+ 3.0. replacement protocol already ordered and started. thanks!
[2020-07-21] MEDS: diltiazem CD 180mg cap (once-daily) PO SCH (07:29)
[2020-07-21] MEDS: metoprolol succinate 25mg (24-HOUR) SR. Tablet PO SCH ×2 (07:30→20:20)
[2020-07-21] MEDS: lisinopril 20mg tablet PO SCH (07:33)
[2020-07-21] MEDS: amiodarone 200mg tablet PO SCH ×2 (07:35→20:20)
[2020-07-21] MEDS: POTASSIUM BICARB 20meq eff tab 20 MEQ TABLET.EFF PO PRN ×3 (07:36→17:35)
[2020-07-21] MEDS: apixaban 5mg tablet PO SCH ×2 (07:36→20:21)
[2020-07-21] MEDS: HYDROchlorothiazide 12.5mg capsule PO SCH (07:37)
[2020-07-21] MEDS: pantoprazole 40mg Tablet.DR PO SCH ×2 (07:37→20:20)
[2020-07-21] MEDS: aspirin 81mg tablet.DR PO SCH (07:37)
[2020-07-21] MEDS: multivitamins, therapeutics tablet PO SCH (07:37)
[2020-07-21] MEDS: vitamin D (cholecalciferol) 1,000 unit tablet PO SCH (07:37)
[2020-07-21] MEDS: docusate sodium 100mg/10ml UD cup PO SCH ×2 (07:37→20:00)
[2020-07-21] MEDS: lactobacillus rhamnosus 10,000 MMU CELLS/CAPSULE PO SCH ×2 (07:37→20:19)
[2020-07-21] MEDS ORDERED: DILTIAZEM HCL PO SCH (08:00)
[2020-07-21] MEDS: ROSUVASTATIN CALCIUM 10 MG PO SCH (08:00)
[2020-07-21] MEDS: labetalol 20mg/4ml (5mg/ml) syringe IV PRN (09:18)
--- NOTE | 2020-07-21 18:37 | NUR ---
Problems reprioritized. Patient report given, questions answered & plan of care reviewed with MAGI Duran.
[2020-07-21] MEDS: zolpidem 5mg tablet PO SCH (20:40)
[2020-07-21] MEDS ORDERED: VANCOMYCIN LEVEL IV ONE (23:30)
[2020-07-22] VITALS (12 sets, daily range): BP systolic 100–153; BP diastolic 66–112
[2020-07-22 01:33] LABS: BASOPHILS % (AUTO) 0.3 % (0-1); EOSINOPHILS # (AUTO) 0.1 X10'3 (0-0.9); EOSINOPHILS % (AUTO) 1.3 % (0-6); HEMATOCRIT 33.2 % (42.0-52.0); HEMOGLOBIN 11.1 g/dl (14.0-17.9); LYMPHOCYTES % (AUTO) 9.3 % (21-51); MEAN CORPUSCULAR HEMOGLOBIN 31.7 PG (27.0-31.0); MEAN CORPUSCULAR HGB CONC 33.6 g/dL (33.0-36.5); MEAN CORPUSCULAR VOLUME 94.4 FL (78-98); MONOCYTES # (AUTO) 0.8 X10'3 (0-0.9); MONOCYTES % (AUTO) 7.9 % (2-12); NEUTROPHILS # (AUTO) 8.3 X10'3 (1.8-7.7); NEUTROPHILS % (AUTO) 81.2 % (42-75); PLATELET COUNT 259 X10'3 (140-440); RED BLOOD COUNT 3.51 X10'6 (4.70-6.10); RED CELL DISTRIBUTION WIDTH 15.7 % (11.5-14.5); WHITE BLOOD COUNT 10.3 X10'3 (4.5-11.0)
[2020-07-22 01:48] LABS: CHLORIDE 102 MMOL/L (99-107); SODIUM 141 MMOL/L (135-145)
[2020-07-22 02:00] LABS: POTASSIUM 2.9 MMOL/L (3.5-5.1)
[2020-07-22] MEDS: mineral oil/petrolatum ophthal oint EACHEYE SCH ×4 (02:00→20:00)
[2020-07-22 02:20] LABS: ALANINE AMINOTRANSFERASE 30 U/L (12-78); ALBUMIN 2.2 G/DL (3.4-5.0); ALBUMIN/GLOBULIN RATIO 0.6 (1.1-1.5); ALKALINE PHOSPHATASE 196 IU/L (46-116); ANION GAP 8 (8-16); ASPARTATE AMINO TRANSFERASE 35 U/L (10-37); BILIRUBIN,TOTAL 1.2 MG/DL (0.1-1.0); BLOOD UREA NITROGEN 15 MG/DL (7-18); BUN/CREATININE RATIO 15.6 (5.4-32.0); CALCIUM 7.8 MG/DL (8.5-10.1); CREATININE 0.96 MG/DL (0.60-1.10); GLUCOSE 98 MG/DL (70-104); MAGNESIUM 1.7 MG/DL (1.5-2.4); PHOSPHORUS 3.6 MG/DL (2.3-4.5); TOTAL CARBON DIOXIDE 30.8 MMOL/L (24-32); TOTAL PROTEIN 5.6 G/DL (6.4-8.2); eGFR 77 ML/MIN
[2020-07-22] MEDS: POTASSIUM BICARB 20meq eff tab 20 MEQ TABLET.EFF PO PRN ×3 (02:21→14:47)
[2020-07-22 02:23] LABS: VANCOMYCIN,TROUGH 39.7 UG/ML (6.0-14.0)
[2020-07-22] MEDS: ipratropium/albuterol 3ml nebule NEB SCH ×6 (03:00→23:52)
--- NOTE | 2020-07-22 04:59 | NUR ---
Patient in room PCU 3023. I have received report from Nataly SOW and had the opportunity to ask questions and assume patient care.
--- NOTE | 2020-07-22 06:30 | NUR ---
Patient in room PCU 3023. I have received report from Renee SOW and had the opportunity to ask questions and assume patient care.
[2020-07-22] MEDS: docusate sodium 100mg/10ml UD cup PO SCH ×2 (08:00→19:58)
[2020-07-22] MEDS: ROSUVASTATIN CALCIUM 10 MG PO SCH (08:00)
[2020-07-22] MEDS: diltiazem CD 180mg cap (once-daily) PO SCH (08:02)
[2020-07-22] MEDS: metoprolol succinate 25mg (24-HOUR) SR. Tablet PO SCH ×2 (08:02→19:55)
[2020-07-22] MEDS: HYDROchlorothiazide 12.5mg capsule PO SCH (08:03)
[2020-07-22] MEDS: furosemide 40mg tablet PO SCH ×2 (08:03→16:40)
[2020-07-22] MEDS: apixaban 5mg tablet PO SCH ×2 (08:03→19:55)
[2020-07-22] MEDS: amiodarone 200mg tablet PO SCH ×2 (08:03→19:55)
[2020-07-22] MEDS: lisinopril 20mg tablet PO SCH (08:04)
[2020-07-22] MEDS: lactobacillus rhamnosus 10,000 MMU CELLS/CAPSULE PO SCH ×2 (08:04→19:55)
[2020-07-22] MEDS: pantoprazole 40mg Tablet.DR PO SCH ×2 (08:05→19:55)
[2020-07-22] MEDS: multivitamins, therapeutics tablet PO SCH (08:05)
[2020-07-22] MEDS: vitamin D (cholecalciferol) 1,000 unit tablet PO SCH (08:05)
[2020-07-22] MEDS: aspirin 81mg tablet.DR PO SCH (08:06)
[2020-07-22] MEDS: potassium Cl 20 mEq SR tablet PO SCH ×2 (10:19→16:40)
[2020-07-22] MEDS: HYDROcodone/acetaminophen 5mg/325mg tablet PO PRN (11:08)
[2020-07-22] MEDS ORDERED: VANCOMYCIN LEVEL IV ONE (11:30)
[2020-07-22] MEDS: cloNIDine 0.1 mg tablet PO SCH ×4 (12:26→20:01)
--- NOTE | 2020-07-22 13:26 | NUR ---
PAGER ID: [phone] MESSAGE: Clifton Myrick [id number]: patient fell while ambulating with PT. unsure if he hit his head, patient denies. any new orders? aly [id number]
--- NOTE | 2020-07-22 13:30 | NUR ---
physical therapy ambulating patient. It was reported to me that his heart rate started increasing and he became flushed. Physical therapist called for a chair, before tech could get back with the chair patient fell to ground. Patient states that he did not hit his head or feel any injuries. Physical therapist was unsure if patient hit his head. Hospitalist was paged, he said to monitor patient for now. Patient was wheeled back to his room and put back into bed. After being placed back into bed, patients vitals were as follows BP 101/68 HR 105 SaO2 95 2L 22RR and 0/10 pain. patient still has no complaints at this time and no noted bruising or abrasions. Will continue to monitor patient.
--- NOTE | 2020-07-22 13:46 | NUR ---
Page sent to PICC [id number] Clifton Myrick : needing IV access, patient's IV got pulled out. PICC RN placed the last one, pt very edematous. thanks!
[2020-07-22] MEDS ORDERED: potassium Cl 20 mEq SR tablet PO SCH (17:30)
--- NOTE | 2020-07-22 17:50 | NUR ---
PAGER ID: [phone] MESSAGE: Clifton Myrick [id number]: patients IV came out when he fell. have not been able to get IV access. he was only able to get half his vanco infused. thanks, aly [phone]
--- NOTE | 2020-07-22 17:56 | NUR ---
Student documentation: I have reviewed and agree with all interventions, assessments performed and documented by SN Ramona. Student Medication Administration: For this medication-pass time frame, all medication were reviewed, dispensed, administered and documented per hospital policy by SN Ramona.
--- NOTE | 2020-07-22 18:40 | NUR ---
Patient in room PCU 3023A. I have received report from MAGI Husain and had the opportunity to ask questions and assume patient care.
[2020-07-22] MEDS: zolpidem 5mg tablet PO SCH (20:01)
[2020-07-23] VITALS (8 sets, daily range): BP systolic 87–134; BP diastolic 52–86
--- NOTE | 2020-07-23 00:25 | NUR ---
3 different RNs have tried to establish IV access on patient with no success; now patient is refusing IV and threatening staff saying he will "punch your throat if you come with a needle" Patient refusing medications and treatment saying "my doctor already fixed my gall bladder, I dont need any medications." oriented patient to place, time, person, and events, explained the need for IV access in order to receive antibiotics. Patient refusing education. Will notify NOC Hospitalist and continue to monitor the patient.
--- NOTE | 2020-07-23 00:29 | NUR ---
PAGER ID: [phone] MESSAGE: [phone]- MAGI Moreno for Alli Myrick in [phone]. Patient has no IV since day shift; 3 RNs tried to put one in this shift but no success. Now pt cursing, yelling refusing IV. can't give IV vancomycin. Thanks
--- NOTE | 2020-07-23 00:30 | NUR ---
MD Erasmo recommended to "hold the midnight dose of IV Vancomycin. Have PICC RN insert an IV during the day and continue antibiotic treatment thereafter." Will continue to assess and monitor the patient
[2020-07-23] MEDS: HYDROcodone/acetaminophen 5mg/325mg tablet PO PRN (00:57)
[2020-07-23] MEDS: mineral oil/petrolatum ophthal oint EACHEYE SCH ×2 (02:00→08:00)
[2020-07-23] MEDS: ipratropium/albuterol 3ml nebule NEB SCH ×6 (03:00→23:56)
--- NOTE | 2020-07-23 06:30 | NUR ---
Patient in room PCU 3023. I have received report from MAGI ABDULLAHI and had the opportunity to ask questions and assume patient care.
--- NOTE | 2020-07-23 06:53 | NUR ---
Problems reprioritized. Patient report given, questions answered & plan of care reviewed with MAGI Saleh.
--- NOTE | 2020-07-23 07:21 | NUR ---
PLEASE CALL FRACISCO [phone]. TY PAGED PICC RN
--- NOTE | 2020-07-23 07:21 | NUR ---
PAGED [facility] RN: PAGER ID: [phone] MESSAGE: DR. RUBI, 3026B/LADONNA C02 41.5 CHEM PANEL. ON BIPAP WITH SITTER. FRACISCO
[2020-07-23] MEDS: diltiazem CD 120mg capsule (once-daily) PO SCH (07:55)
[2020-07-23] MEDS: cloNIDine 0.1 mg tablet PO SCH ×3 (07:56→20:37)
[2020-07-23] MEDS: docusate sodium 100mg/10ml UD cup PO SCH (07:59)
[2020-07-23] MEDS: aspirin 81mg tablet.DR PO SCH (08:00)
[2020-07-23] MEDS: furosemide 40mg tablet PO SCH ×3 (08:00→17:45)
[2020-07-23] MEDS: HYDROchlorothiazide 12.5mg capsule PO SCH (08:00)
[2020-07-23] MEDS: lactobacillus rhamnosus 10,000 MMU CELLS/CAPSULE PO SCH ×2 (08:00→20:37)
[2020-07-23] MEDS: amiodarone 200mg tablet PO SCH (08:00)
[2020-07-23] MEDS: apixaban 5mg tablet PO SCH ×2 (08:00→20:37)
[2020-07-23] MEDS: ROSUVASTATIN CALCIUM 10 MG PO SCH (08:00)
[2020-07-23] MEDS: pantoprazole 40mg Tablet.DR PO SCH ×2 (08:01→20:37)
[2020-07-23] MEDS: multivitamins, therapeutics tablet PO SCH (08:01)
[2020-07-23] MEDS: metoprolol succinate 25mg (24-HOUR) SR. Tablet PO SCH ×2 (08:01→20:37)
[2020-07-23] MEDS: vitamin D (cholecalciferol) 1,000 unit tablet PO SCH (08:02)
[2020-07-23] MEDS: lisinopril 20mg tablet PO SCH (08:02)
[2020-07-23] MEDS: potassium Cl 20 mEq SR tablet PO SCH ×2 (08:03→17:45)
[2020-07-23 09:45] LABS: BASOPHILS # (AUTO) 0.1 X10'3 (0-0.2); BASOPHILS % (AUTO) 0.8 % (0-1); EOSINOPHILS # (AUTO) 0.1 X10'3 (0-0.9); EOSINOPHILS % (AUTO) 1.5 % (0-6); HEMATOCRIT 34.6 % (42.0-52.0); HEMOGLOBIN 11.2 g/dl (14.0-17.9); LYMPHOCYTES # (AUTO) 0.8 X10'3 (1.1-4.8); LYMPHOCYTES % (AUTO) 8.1 % (21-51); MEAN CORPUSCULAR HEMOGLOBIN 30.5 PG (27.0-31.0); MEAN CORPUSCULAR HGB CONC 32.3 g/dL (33.0-36.5); MEAN CORPUSCULAR VOLUME 94.3 FL (78-98); MEAN PLATELET VOLUME 9.2 FL (7.4-10.4); MONOCYTES % (AUTO) 10.6 % (2-12); NEUTROPHILS # (AUTO) 7.5 X10'3 (1.8-7.7); PLATELET COUNT 300 X10'3 (140-440); RED BLOOD COUNT 3.66 X10'6 (4.70-6.10); RED CELL DISTRIBUTION WIDTH 15.9 % (11.5-14.5); WHITE BLOOD COUNT 9.5 X10'3 (4.5-11.0)
[2020-07-23 10:06] LABS: ALANINE AMINOTRANSFERASE 59 U/L (12-78); ALBUMIN 2.4 G/DL (3.4-5.0); ALBUMIN/GLOBULIN RATIO 0.7 (1.1-1.5); ALKALINE PHOSPHATASE 188 IU/L (46-116); ANION GAP 9 (8-16); ASPARTATE AMINO TRANSFERASE 64 U/L (10-37); BILIRUBIN,TOTAL 1.2 MG/DL (0.1-1.0); BLOOD UREA NITROGEN 19 MG/DL (7-18); BUN/CREATININE RATIO 15.4 (5.4-32.0); CALCIUM 8.5 MG/DL (8.5-10.1); CHLORIDE 100 MMOL/L (99-107); CREATININE 1.23 MG/DL (0.60-1.10); GLUCOSE 119 MG/DL (70-104); MAGNESIUM 1.7 MG/DL (1.5-2.4); PHOSPHORUS 3.5 MG/DL (2.3-4.5); POTASSIUM 3.6 MMOL/L (3.5-5.1); SODIUM 140 MMOL/L (135-145); TOTAL CARBON DIOXIDE 31.5 MMOL/L (24-32); eGFR 58 ML/MIN
--- NOTE | 2020-07-23 11:21 | NUR ---
CALLED JANUSZ/, LIVES IN [place]. WILL BRING ROSUVASTATIN FROM HOME LATER TODAY, AFTER SHE IS OFF WORK.
--- NOTE | 2020-07-23 12:10 | NUR ---
Patient in room PCU 3023. I have received report from Delfino SOW and had the opportunity to ask questions and assume patient care.
--- NOTE | 2020-07-23 15:05 | NUR ---
1100 and 1500 svns missed-triaged.
--- NOTE | 2020-07-23 15:12 | NUR ---
Reassessment: Patient now oriented, PO Intake improving now eating 75-100% past two days with soft bite sized diet per ST recs. [facility]. Recommendations: 1) Continue soft bite sized diet with thin liquids per ST recs 2) Ensure Enlive with meals- pending verification in EMR 3) Routine bowel care 4) Scaled weights per rx Addendum: 07/23/20 at [address] Amended: Links added.
--- NOTE | 2020-07-23 16:35 | NUR ---
reviewed student nurse charting
--- NOTE | 2020-07-23 17:30 | NUR ---
CHANGED PATIENTS ISLAND DRESSING ON MID ABD ARNOLDO CLEAN DRY AND INTACT
--- NOTE | 2020-07-23 17:34 | NUR ---
Problems reprioritized. Patient report given, questions answered & plan of care reviewed with []. Patient in room PCU 3017. I have received report from FRACISCO SOW and had the opportunity to ask questions and assume patient care.
--- NOTE | 2020-07-23 18:37 | NUR ---
Student documentation: I have reviewed and agree with all interventions, assessments performed and documented by MAGI PATEL.
--- NOTE | 2020-07-23 18:41 | NUR ---
Patient in room PCU 3015I. I have received report from MAGI Saleh and had the opportunity to ask questions and assume patient care.
--- NOTE | 2020-07-23 18:44 | NUR ---
Problems reprioritized. Patient report given, questions answered & plan of care reviewed with MAGI ABDULLAHI.
[2020-07-23] MEDS: docusate sod 100mg capsule PO SCH (20:00)
[2020-07-23] MEDS: amiodarone 100mg tablet PO SCH (20:37)
[2020-07-23] MEDS: zolpidem 5mg tablet PO SCH (20:37)
[2020-07-24] VITALS (7 sets, daily range): BP systolic 96–111; BP diastolic 55–68
[2020-07-24] MEDS: ipratropium/albuterol 3ml nebule NEB SCH ×6 (03:08→23:37)
--- NOTE | 2020-07-24 06:16 | NUR ---
Problems reprioritized. Patient report given, questions answered & plan of care reviewed with MAGI Saleh.
[2020-07-24 06:17] LABS: BASOPHILS # (AUTO) 0.1 X10'3 (0-0.2); BASOPHILS % (AUTO) 0.7 % (0-1); EOSINOPHILS # (AUTO) 0.2 X10'3 (0-0.9); EOSINOPHILS % (AUTO) 3.1 % (0-6); HEMATOCRIT 32.8 % (42.0-52.0); HEMOGLOBIN 10.7 g/dl (14.0-17.9); LYMPHOCYTES # (AUTO) 0.9 X10'3 (1.1-4.8); LYMPHOCYTES % (AUTO) 11.7 % (21-51); MEAN CORPUSCULAR HEMOGLOBIN 30.8 PG (27.0-31.0); MEAN CORPUSCULAR HGB CONC 32.6 g/dL (33.0-36.5); MEAN CORPUSCULAR VOLUME 94.3 FL (78-98); MEAN PLATELET VOLUME 9.8 FL (7.4-10.4); MONOCYTES # (AUTO) 0.9 X10'3 (0-0.9); MONOCYTES % (AUTO) 11.6 % (2-12); NEUTROPHILS # (AUTO) 5.7 X10'3 (1.8-7.7); NEUTROPHILS % (AUTO) 72.9 % (42-75); PLATELET COUNT 300 X10'3 (140-440); RED BLOOD COUNT 3.48 X10'6 (4.70-6.10); RED CELL DISTRIBUTION WIDTH 16.1 % (11.5-14.5); WHITE BLOOD COUNT 7.9 X10'3 (4.5-11.0)
--- NOTE | 2020-07-24 06:28 | NUR ---
Patient in room PCU 3017. I have received report from juve son and had the opportunity to ask questions and assume patient care.
[2020-07-24 06:39] LABS: ALANINE AMINOTRANSFERASE 64 U/L (12-78); ALBUMIN 2.4 G/DL (3.4-5.0); ALBUMIN/GLOBULIN RATIO 0.7 (1.1-1.5); ALKALINE PHOSPHATASE 180 IU/L (46-116); ANION GAP 11 (8-16); ASPARTATE AMINO TRANSFERASE 62 U/L (10-37); BILIRUBIN,TOTAL 1.1 MG/DL (0.1-1.0); BLOOD UREA NITROGEN 17 MG/DL (7-18); BUN/CREATININE RATIO 13.9 (5.4-32.0); CALCIUM 8.6 MG/DL (8.5-10.1); CHLORIDE 102 MMOL/L (99-107); CREATININE 1.22 MG/DL (0.60-1.10); GLUCOSE 100 MG/DL (70-104); MAGNESIUM 1.8 MG/DL (1.5-2.4); PHOSPHORUS 4.9 MG/DL (2.3-4.5); POTASSIUM 3.3 MMOL/L (3.5-5.1); SODIUM 142 MMOL/L (135-145); TOTAL CARBON DIOXIDE 29.5 MMOL/L (24-32); eGFR 59 ML/MIN
[2020-07-24] MEDS: diltiazem CD 120mg capsule (once-daily) PO SCH (09:05)
[2020-07-24] MEDS: cloNIDine 0.1 mg tablet PO SCH ×3 (09:06→20:36)
[2020-07-24] MEDS: docusate sod 100mg capsule PO SCH ×2 (09:06→20:00)
[2020-07-24] MEDS: amiodarone 100mg tablet PO SCH ×2 (09:06→20:36)
[2020-07-24] MEDS: aspirin 81mg tablet.DR PO SCH (09:07)
[2020-07-24] MEDS: apixaban 5mg tablet PO SCH ×2 (09:07→20:35)
[2020-07-24] MEDS: HYDROchlorothiazide 12.5mg capsule PO SCH (09:07)
[2020-07-24] MEDS: lactobacillus rhamnosus 10,000 MMU CELLS/CAPSULE PO SCH ×2 (09:07→20:31)
[2020-07-24] MEDS: furosemide 40mg tablet PO SCH ×3 (09:07→16:16)
[2020-07-24] MEDS: ROSUVASTATIN CALCIUM 10 MG PO SCH (09:08)
[2020-07-24] MEDS: metoprolol succinate 25mg (24-HOUR) SR. Tablet PO SCH ×2 (09:09→20:33)
[2020-07-24] MEDS: pantoprazole 40mg Tablet.DR PO SCH ×2 (09:09→20:32)
[2020-07-24] MEDS: multivitamins, therapeutics tablet PO SCH (09:09)
[2020-07-24] MEDS: lisinopril 20mg tablet PO SCH (09:10)
[2020-07-24] MEDS: vitamin D (cholecalciferol) 1,000 unit tablet PO SCH (09:10)
[2020-07-24] MEDS: potassium Cl 20 mEq SR tablet PO SCH ×2 (09:11→17:28)
[2020-07-24] MEDS: HYDROcodone/acetaminophen 5mg/325mg tablet PO PRN (09:13)
[2020-07-24] MEDS: POTASSIUM BICARB 20meq eff tab 20 MEQ TABLET.EFF PO PRN ×2 (10:17→14:39)
--- NOTE | 2020-07-24 15:40 | NUR ---
PAGER ID: [phone] MESSAGE: DR. LIGHT, [id number]/ ROSINA. UNABLE TO VOID. BLADDER SCAN SHOWS [phone]. STRAIGHT CATH OR INDWELLING CATHETER? OR? FRACISCO [phone]. TY
--- NOTE | 2020-07-24 18:17 | NUR ---
Student Medication Administration: For this medication-pass time frame, all medication were reviewed, dispensed, administered and documented per hospital policy by MAGI JONAS.
--- NOTE | 2020-07-24 18:17 | NUR ---
Student documentation: I have reviewed and agree with all interventions, assessments performed and documented by MAGI JONAS STUDENT.
--- NOTE | 2020-07-24 18:40 | NUR ---
Problems reprioritized. Patient report given, questions answered & plan of care reviewed with MAGI LOPEZ.
[2020-07-24] MEDS: zolpidem 5mg tablet PO SCH (20:34)
[2020-07-24] MEDS ORDERED: tamsulosin 0.4mg capsule PO SCH (21:00)
[2020-07-24] MEDS ORDERED: VANCOMYCIN LEVEL IV ONE (23:30)
[2020-07-25] MEDS: furosemide 40mg tablet PO SCH (01:17)
[2020-07-25 02:00] VITALS: BP 108/68
--- NOTE | 2020-07-25 02:00 | NUR ---
DVT to LFA. Circumference measured 23cm. Arm is currently elevated on a pillow. Patient denies any pain or discomfort to arm. Arm harman and warm upon touch. Will continue with current care.
[2020-07-25] MEDS: ipratropium/albuterol 3ml nebule NEB SCH ×3 (03:28→11:00)
[2020-07-25 05:48] LABS: BASOPHILS # (AUTO) 0.1 X10'3 (0-0.2); BASOPHILS % (AUTO) 0.9 % (0-1); EOSINOPHILS # (AUTO) 0.2 X10'3 (0-0.9); HEMATOCRIT 30.8 % (42.0-52.0); HEMOGLOBIN 10.3 g/dl (14.0-17.9); LYMPHOCYTES # (AUTO) 0.7 X10'3 (1.1-4.8); LYMPHOCYTES % (AUTO) 11.2 % (21-51); MEAN CORPUSCULAR HEMOGLOBIN 31.2 PG (27.0-31.0); MEAN CORPUSCULAR HGB CONC 33.5 g/dL (33.0-36.5); MEAN CORPUSCULAR VOLUME 93.2 FL (78-98); MEAN PLATELET VOLUME 8.6 FL (7.4-10.4); MONOCYTES # (AUTO) 0.9 X10'3 (0-0.9); MONOCYTES % (AUTO) 13.6 % (2-12); NEUTROPHILS # (AUTO) 4.7 X10'3 (1.8-7.7); NEUTROPHILS % (AUTO) 71.3 % (42-75); PLATELET COUNT 331 X10'3 (140-440); RED CELL DISTRIBUTION WIDTH 15.7 % (11.5-14.5); WHITE BLOOD COUNT 6.5 X10'3 (4.5-11.0)
[2020-07-25 06:00] VITALS: BP 127/66
[2020-07-25 06:09] LABS: ALANINE AMINOTRANSFERASE 73 U/L (12-78); ALBUMIN 2.3 G/DL (3.4-5.0); ALBUMIN/GLOBULIN RATIO 0.7 (1.1-1.5); ALKALINE PHOSPHATASE 167 IU/L (46-116); ANION GAP 10 (8-16); ASPARTATE AMINO TRANSFERASE 67 U/L (10-37); BILIRUBIN,TOTAL 1.1 MG/DL (0.1-1.0); BLOOD UREA NITROGEN 21 MG/DL (7-18); BUN/CREATININE RATIO 9.8 (5.4-32.0); CALCIUM 8.2 MG/DL (8.5-10.1); CHLORIDE 102 MMOL/L (99-107); CREATININE 2.14 MG/DL (0.60-1.10); GLUCOSE 108 MG/DL (70-104); MAGNESIUM 1.8 MG/DL (1.5-2.4); PHOSPHORUS 4.9 MG/DL (2.3-4.5); POTASSIUM 3.7 MMOL/L (3.5-5.1); SODIUM 141 MMOL/L (135-145); TOTAL CARBON DIOXIDE 28.9 MMOL/L (24-32); TOTAL PROTEIN 5.8 G/DL (6.4-8.2); eGFR 31 ML/MIN
[2020-07-25] MEDS: cloNIDine 0.1 mg tablet PO SCH ×2 (08:00→13:00)
[2020-07-25] MEDS ORDERED: normal saline 1000ml 1,000 ML IV SCH (09:35)
[2020-07-25] MEDS: potassium Cl 20 mEq SR tablet PO SCH (09:49)
[2020-07-25] MEDS: vitamin D (cholecalciferol) 1,000 unit tablet PO SCH (09:49)
[2020-07-25] MEDS: amiodarone 100mg tablet PO SCH (09:49)
[2020-07-25] MEDS: diltiazem CD 120mg capsule (once-daily) PO SCH (09:50)
[2020-07-25] MEDS: docusate sod 100mg capsule PO SCH (09:51)
[2020-07-25] MEDS: metoprolol succinate 25mg (24-HOUR) SR. Tablet PO SCH (09:51)
[2020-07-25] MEDS: pantoprazole 40mg Tablet.DR PO SCH (09:52)
[2020-07-25] MEDS: lactobacillus rhamnosus 10,000 MMU CELLS/CAPSULE PO SCH (09:52)
[2020-07-25] MEDS: multivitamins, therapeutics tablet PO SCH (09:52)
[2020-07-25] MEDS: ROSUVASTATIN CALCIUM 10 MG PO SCH (09:53)
[2020-07-25] MEDS: apixaban 5mg tablet PO SCH (09:53)
[2020-07-25] MEDS: aspirin 81mg tablet.DR PO SCH (09:53)
[2020-07-25] MEDS: HYDROcodone/acetaminophen 5mg/325mg tablet PO PRN (10:02)
[2020-07-25 11:00] VITALS: BP 121/81
--- NOTE | 2020-07-25 12:58 | NUR ---
PAGER ID: [phone] MESSAGE: Alli Myrick [phone] A Pt. transferring at 1300. no ATB ordered in transfer packet. Just making sure you are aware- pt. was on IV Rocephin for perf. gastric ulcer. Louise 1919
--- NOTE | 2020-07-25 13:12 | NUR ---
MEIR drain DC'd by student. Sterile gauze and tegaderm used for bandage. Pt. tolerated well. Called report to Vilmaa and spoke with Graciela HILLIARD.
--- NOTE | 2020-07-25 15:00 | NUR ---
PT TRANSFERRED TO [facility]IA [facility]. ALL PT BELONGINGS GATHERED AND GIVEN TO [facility]I [facility]GO ATTENDEES WHO THEN FORGOT THEM AND HAD TO COME BACK FOR THEM. IV LEFT IN PER CM. F/C LEFT IN PER .
== END 2020-07-25 15:15 | DRG 853 ==
LOC: ER 12:18 → CICU 2S 17:16 → UNDOADMIN 17:16 → PCU 3S 07-18 14:36
PROVIDERS: ADMIT Internal Medicine Critical Care Medicine; ATTEND Internal Medicine Critical Care Medicine
PROC: B32T1ZZ Computerized Tomography (CT Scan) of Left Pulmonary Artery using Low Osmolar Contrast (ICD-10-PCS; 2020-07-12)
PROC: B3201ZZ Computerized Tomography (CT Scan) of Thoracic Aorta using Low Osmolar Contrast (ICD-10-PCS; 2020-07-12)
PROC: B32S1ZZ Computerized Tomography (CT Scan) of Right Pulmonary Artery using Low Osmolar Contrast (ICD-10-PCS; 2020-07-12)
PROC: 03HY32Z Insertion of Monitoring Device into Upper Artery, Percutaneous Approach (ICD-10-PCS; 2020-07-12)
PROC: 4A133B1 Monitoring of Arterial Pressure, Peripheral, Percutaneous Approach (ICD-10-PCS; 2020-07-12)
PROC: 4A133J1 Monitoring of Arterial Pulse, Peripheral, Percutaneous Approach (ICD-10-PCS; 2020-07-12)
PROC: 0DU707Z Supplement Stomach, Pylorus with Autologous Tissue Substitute, Open Approach (ICD-10-PCS; principal; 2020-07-12 15:40)
PROC: 5A09357 Assistance with Respiratory Ventilation, Less than 24 Consecutive Hours, Continuous Positive Airway Pressure (ICD-10-PCS; 2020-07-23)
DX: A41.9 Sepsis, unspecified organism (principal); E43 Unspecified severe protein-calorie malnutrition; K25.5 Chronic or unspecified gastric ulcer with perforation; K65.0 Generalized (acute) peritonitis; J96.00 Acute respiratory failure, unspecified whether with hypoxia or hypercapnia; E87.0 Hyperosmolality and hypernatremia; I47.1 Supraventricular tachycardia; I82.622 Acute embolism and thrombosis of deep veins of left upper extremity; K63.3 Ulcer of intestine; N17.9 Acute kidney failure, unspecified; D64.9 Anemia, unspecified; E66.01 Morbid (severe) obesity due to excess calories; Z20.828 Contact with and (suspected) exposure to other viral communicable diseases; E78.5 Hyperlipidemia, unspecified; E87.6 Hypokalemia; R74.01 Elevation of levels of liver transaminase levels; I10 Essential (primary) hypertension; I48.91 Unspecified atrial fibrillation; N13.9 Obstructive and reflux uropathy, unspecified; Z79.899 Other long term (current) drug therapy; Z68.36 Body mass index [BMI] 36.0-36.9, adult; Z88.0 Allergy status to penicillin; Z88.8 Allergy status to other drugs, medicaments and biological substances; Z79.82 Long term (current) use of aspirin
CPT/HCPCS: 96374; 96375; 99285; Z7506; Z7508; 36415; 36600; 71045; 71275; 74174; 76937; 80053; 80202; 81001; 82728; 82803; 82948; 83605; 83615; 83690; 83735; 83880; 84100; 84132; 84134; 84145; 84484; 85018; 85025; 85384; 85610; 85730; 86140; 86885; 86900; 86901; 87040; 87077; 87081; 87088; 87186; 87635; 92508; 92616; 93005; 93971; 94002; 94003; 94640; 94760; 97110; 97112; 97116; 97161; 97530; 97535; A4618; A7000; C9113; C9803; G0378; J0696; J1450; J1940; J1956; J2001; J2250; J2270; J2370; J2704; J3010; J3370; J3480; J3490; J7030; J7120; Q9967